=== PATIENT | male | born 1945 | race Caucasian/White ===

== ENCOUNTER 2023-11-13 18:07 | Emergency (ER) | payer MEDICARE | END 2023-11-13 20:23 | disposition home or self-care (01) | LOC: CSHERS 18:07 | DX: I80.9 Phlebitis and thrombophlebitis of unspecified site (principal); S60.211A Contusion of right wrist, initial encounter; I10 Essential (primary) hypertension; I48.91 Unspecified atrial fibrillation; Z79.01 Long term (current) use of anticoagulants; X58.XXXA Exposure to other specified factors, initial encounter | CPT/HCPCS: 99283 ==